=== PATIENT | female | born 1995 | race Caucasian/White ===

== ENCOUNTER 2016-08-20 16:34 | Emergency (ER) | payer OTHER ==
[~2016-08-20 16:34] MED LIST: ALBUTEROL17 GM INH; BACTRIM DS TABL1 TA1 PO; BENADRYL25 M3 PO; DAKIN'S MODIF1000 ML TOP; DESYREL50 MG PO; FAMOTIDINE PO; IBUPROFEN PO; NAPROXEN500 M1 PO; NEURONTIN300 MG PO; NO MEDICATIONS; PHENERGAN PO; PREDNISONE PO; REQUIP1 MG PO; VISTARIL PO
[2016-08-20 17:15] LABS: AMPHETAMINE POS (NEG); BARBITURATES NEG (NEG); BENZODIAZEPINES NEG (NEG); COCAINE NEG (NEG); MARIJUANA NEG (NEG); OPIATES NEG (NEG); TRICYCLIC ANTIDEPRESSANTS NEG (NEG); U METHADONE NEG (NEG)
[2016-10-27] MEDS ORDERED: ALBUTEROL17 GM (03:26)
== END 2016-08-20 17:22 | disposition home or self-care (01) ==
LOC: SED 16:34
PROVIDERS: Nurse Practitioner
DX: L02.413 Cutaneous abscess of right upper limb (principal); J45.909 Unspecified asthma, uncomplicated; F41.9 Anxiety disorder, unspecified; Z79.899 Other long term (current) drug therapy
CPT/HCPCS: 10060; 80307; 84703; 87070; 87205; 99283

== ENCOUNTER 2016-08-22 15:27 | Inpatient (IN) | payer OTHER ==
--- NOTE | ~2016-08-22 | CR63 ---
[facility] A Service of [facility] RADIOLOGY TEXT RESULTS PATIENT: RENETTA TYSON LOCATION: CEDOF : 95 UNIT #: [id number] AGE: [address]: Jovon Oquendo MD SEX: F ORDER DR: [id number] [place] [id number] [facility]. [place], [place] [address] [id number] I MR#: [id number] Acc #: [id number] NAME: RENETTA TYSON : 1995 SEX: F STUDY DATE/TIME: 08/22/2016 20:58 UNIT: CEDOF ROOM: 42856 STUDY DESCRIPTION: CR Chest 2 View Attending Physician: Jovon Oquendo M.D. Ordering Physician: Lizzeth Simeon M.D. Primary Care Physician: Francis Fletcher M.D. MEDICAL IMAGING REPORT This report is preliminary unless electronic signature is present EXAM PA and lateral chest. INDICATIONS Shortness of air, chest pain. Evaluate right arm abscess. Symptoms have been going on for 5 days. COMPARISON 04/09/2016. FINDINGS PA and lateral examination of the chest upright shows a good expansion of the parenchyma with a normal distribution of the pulmonary vascularity. There is no indication of congestion, effusion, infiltrate, tumor, or nodular density. The pleural reflections and diaphragmatic contours are normal. The cardiac silhouette and mediastinal anatomy is within normal limits. IMPRESSION Normal chest. Dictated by... Jorje Flores M.D. THIS IS AN ELECTRONICALLY VERIFIED REPORT Jorje Flores M.D. at 08/23/2016 4:33 PM FEL/pc TD: 08/23/2016 15:19 JOB #: [id number] [facility] A Service of [facility] RADIOLOGY TEXT RESULTS PATIENT: RENETTA TYSON LOCATION: CEDOF : 95 UNIT #: [id number] AGE: [address]: Jovon Oquendo MD SEX: F ORDER DR: MEDICAL IMAGING REPORT COPY
--- NOTE | ~2016-08-22 | DS ---
Unit #: [id number] #: [id number] Patient: RENETTA TYSON [id number] [address] [place], [place] [address] [id number] I MR#: [id number] NAME: RENETTA TYSON ROOM: 579 Age: 21 Sex: F Admission Date: 08/22/2016 : 1995 Discharge Date: 08/24/2016 Attending Physician: Jovon Oquendo M.D. Primary Care Physician: Francis Fletcher M.D. DISCHARGE SUMMARY PRIMARY DIAGNOSIS Antecubital abscess of the right upper extremity. SECONDARY DIAGNOSES 1. IV drug use including use of her IV line here in the hospital. 2. Sepsis secondary to her abscess. 3. Transaminitis. 4. Asthma, clinically stable. HOSPITAL COURSE The patient was placed in the hospital, underwent I and D for her antecubital abscess. She was given Lortab 10 mg q.4 hours p.r.n. for pain control, but nonetheless the patient appears to have used her PICC line and IV tubing for subcutaneous injection in her hospital room as she had a large IV needle line hole found in her IV tubing, which resulted in fluid loss from the IV tubing. Considering her ongoing IV drug use, the patient could not be continued to be safely treated in the hospital setting. Her temperature was stable and her white blood cell count had decreased significantly and all signs of sepsis had markedly improved and the patient on clinical exam was markedly better, so it was felt appropriate for discharge to home and close followup outpatient with the surgical team. We switched her over to doxycycline p.o. and I will continue to monitor her cultures after she leaves. The patient gave me her father's phone number to contact if for some reason the antibiotics need to be changed based on ultimate culture results. She was seen by social work nurse and provided contact information for drug abstinence programs, but at the current time she seems far from willing to avail herself of these programs. DISCHARGE DISPOSITION To home. DISCHARGE STATUS Stable. DISCHARGE ACTIVITY Ad delphine. DISCHARGE DIET Unrestricted. DISCHARGE FOLLOWUP Followup is with [facility] in 2 to 8 days for wound check. Unit #: [id number] #: [id number] Patient: RENETTA TYSON DISCHARGE MEDICATIONS Tylenol 650 mg p.o. q.6 hours p.r.n. for pain, Zyrtec 10 mg p.o. daily, naproxen 500 mg p.o. b.i.d., and doxycycline 100 mg p.o. b.i.d. Dictated by... Jovon Oquendo M.D. LIZ/moy TD: 08/27/2016 06:14 JOB #: [id number] DISCHARGE SUMMARY X Jovon Oquendo MD X DISCHARGE SUMMARY
--- NOTE | ~2016-08-22 | EKG ---
PATIENT: RENETTA TYSON UNIT #: [id number] Ventricular Rate: 105 BPM Atrial Rate: 105 BPM P-R Interval: 144 ms QRS Duration: 110 ms Q-T Interval: 354 ms QTC Calculation(Bezet): 467 ms P [place]: 71 degrees Calculated R [place]: 15 degrees Calculated T [place]: 53 degrees Diagnosis Line: Sinus tachycardia Diagnosis Line: Otherwise normal ECG Diagnosis Line: No previous ECGs available Diagnosis Line: Confirmed by NOEMI UP MD ([id number]) on Diagnosis Line: 08/26/2016 3:57:41 PM INTERPRETING MD: JEOVANNY RICK
--- NOTE | ~2016-08-22 | HP ---
Unit #: [id number] #: [id number] Patient: RENETTA TYSON [id number] [facility] [address] [facility]. [place], [place] [address] [id number] I MR#: [id number] NAME: RENETTA TYSON ROOM: 47351 Age: 21 Sex: F Admission Date: 08/22/2016 : 1995 Attending Physician: Anneliese Banerjee M.D. Primary Care Physician: Francis Fletcher M.D. HISTORY AND PHYSICAL CHIEF COMPLAINT Abscess. HISTORY OF PRESENT ILLNESS The patient is a 21-year-old female with past medical history of asthma and IV drug use as well as anxiety and depression who presented to the emergency department for evaluation of the above. Of note, the patient was seen at [facility] on 08/20/2016 for an abscess involving the right upper extremity on the dorsal aspect. She underwent incision and drainage. She was discharged home on Keflex and Bactrim which she has been taking as prescribed. This morning she woke with a new abscess involving the right antecubital fossa. She states that it is swollen, red and tender. She denies any fever. No cough or cold symptoms. No bowel or bladder problems. In the emergency department, temperature was 97.5, pulse 113. During the course of her evaluation, blood pressure dropped to 88/36. Laboratory notable for white blood cell count of 12.5; lactic acid 1.3. She is being admitted to [facility] for evaluation and further treatment. PAST MEDICAL HISTORY 1. Admission to [facility] 12/28 through 01/01/2016 for bilateral upper extremity abscesses. She underwent incision and drainage during that admission. I do not see a wound culture from that admission. She did have blood cultures that were no growth after five days. 2. Asthma not requiring intubation. She has not seen a informix developer. 3. Anxiety depression. 4. IV drug use. PAST SURGICAL HISTORY 1. Incision and drainage of abscess. 2. . 3. [place] teeth removal. ALLERGIES No known allergies. HOME MEDICATIONS Include: 1. Zyrtec 10 mg daily. 2. Naproxen 500 mg b.i.d. 3. Bactrim b.i.d. 4. Keflex 250 mg q.i.d. Unit #: [id number] #: [id number] Patient: RENETTA TYSON SOCIAL HISTORY The patient lives with her mom. She smokes a pack of cigarettes daily. She uses IV drugs, both heroin and methamphetamine. She states that she uses clean needles. She states that she recently relapsed and her last use was 3 days prior to admission. She also smokes marijuana. She is not currently working. FAMILY HISTORY Notable for her mother having COPD. Her father has diabetes. REVIEW OF SYSTEMS A complete review of systems is negative except as indicated in the HPI. PHYSICAL EXAMINATION VITAL SIGNS: Temperature 97.5, pulse 113, respirations 18, blood pressure 113/69. GENERAL: The patient is a female who is awake and alert. No acute distress. HEENT: Head is atraumatic. Mucous membranes are moist. NECK: Supple. Trachea is midline. LUNGS: Relatively clear to auscultation bilaterally with no increased work of breathing. HEART: Tachycardic in the one-teens. ABDOMEN: Soft, nontender. Bowel sounds present in all four quadrants. EXTREMITIES: The dorsal aspect of the right forearm demonstrates an incised wound consistent with previous incision and drainage. The right antecubital fossa demonstrates a several centimeter area of edema, warmth, tenderness to palpation. It is indurated. There is a 2+ radial pulse. Sensation is intact. PSYCHIATRIC: Patient is quite tearful. SKIN: Demonstrates the previously described abnormalities. DIAGNOSTIC STUDIES LABORATORY: Beta HCG from 08/20/2016 was negative. Urine toxicology screen from 08/20/2016 was positive for amphetamines. Wound culture from 08/20/2016 shows no organisms. Gram-stain shows no organisms. Complete blood count notable for white blood cell count of 12.5. Lactic acid 1.3. Comprehensive metabolic panel notable for a sodium of 132, AST 59, ALT 221, alkaline phosphatase 134. ASSESSMENT The patient is a 21-year-old female with: 1. Right upper extremity abscess. The patient received vancomycin. She was on Keflex and Bactrim as an outpatient. 2. Sepsis with lactic acid of 1.3. 3. Hyponatremia. 4. IV drug use. 5. Transaminitis. 6. Anxiety depression. 7. Tobacco abuse. 8. Asthma. PLAN 1. Admit to intermediate level. 2. Regular diet. 3. N.p.o. after midnight for possible surgical intervention. 4. Blood cultures x2. Unit #: [id number] #: [id number] Patient: RENETTA TYSNO 5. Vancomycin IV and Zosyn IV. 6. Consult [facility] regarding right upper extremity abscess. 7. Sepsis protocol with repeat lactic acid. 8. Normal saline at 150 mL per hour. 9. Monitor blood pressure closely. 10. Chest x-ray for further evaluation of hyponatremia. 11. Hepatitis panel. 12. HIV. 13. accounting office manager and social work consult regarding IV drug use. 14. Check EKG. 15. P.r.n. DuoNeb. 16. P.r.n. Tylenol. 17. P.r.n. Toradol. 18. Check urinalysis and urine toxicology screen as well as urine beta HCG. 19. P.r.n. Zofran. 20. Repeat labs in the morning. 21. SCDs for DVT prophylaxis. 22. Additional workup and consultants based on above. Dictated by Brigida Hudson/cailin TD: 08/22/2016 22:40 JOB #: [id number] HISTORY AND PHYSICAL X Anneliese Banerjee MD X HISTORY AND PHYSICAL
--- NOTE | ~2016-08-22 | OR ---
Unit #: [id number] #: [id number] Patient: RENETTA TYSON [id number] [address] [address] [id number] I MR#: [id number] NAME: RENETTA TYSON ROOM: 579 Date of Procedure: 08/24/2016 Admission Date: 08/22/2016 Surgeon: Erick Pompa M.D. : 1995 Attending Physician: Jovon Oqeundo M.D. Primary Care Physician: Francis Fletcher M.D. OPERATIVE REPORT PREOPERATIVE DIAGNOSIS Right antecubital abscess. POSTOPERATIVE DIAGNOSIS Right antecubital abscess. PROCEDURE PERFORMED Incision and drainage of right antecubital abscess. ANESTHESIA LMA. COMPLICATIONS None. ESTIMATED BLOOD LOSS Minimal. DESCRIPTION OF PROCEDURE After the patient was prepped and draped in usual fashion, right antecubital space was examined. There was a larger cellulitis with a 4 cm area of fluctuance. This was opened with a scalpel. Pus was freely expressed. The abscess cavity was irrigated and suctioned free. Pus was sent for culture. All of the abscess cavity tissue was viable. There was no significant necrosis. Hemostasis completed with electrocautery. The wound was packed with 1/2-inch iodoform gauze. Dressings applied. The patient was taken to the recovery room in good condition. Dictated by... Brigida Holley/moy TD: 08/25/2016 04:20 JOB #: [id number] Unit #: [id number] #: [id number] Patient: RENETTA TYSON OPERATIVE REPORT X Erick Pompa X PROCEDURE OPERATIVE NOTE
[2016-08-22] MEDS ORDERED: NAPROSYN500 MG PO (16:23)
[2016-08-22] MEDS ORDERED: ZYRTEC10 M1 PO (16:23)
[2016-08-22] MEDS ORDERED: BACTRIM DS TABL1 TA1 PO (16:23)
[2016-08-22] MEDS ORDERED: KEFLEX250 M1 PO (16:23)
[2016-08-22 16:40] LABS: BASOPHIL# 0.1 X10e3 (0-0.3); BASOPHIL% 0.5 % (0-2.5); EOSINOPHIL# 0.6 X10e3 (0-0.7); EOSINOPHIL% 4.4 % (0.0-7.0); HEMATOCRIT 42.8 % (35.0-45.0); HEMOGLOBIN 14.2 gm/dL (12.0-16.0); LYMPHOCYTE# 5.1 X10e3 (1.0-3.5); LYMPHOCYTE% 41.1 % (17.0-45.0); MEAN CORPUSCULAR HEMOGLOBIN 27.3 PG (28-34); MEAN CORPUSCULAR HGB CONC 33.2 g/dL (30-36); MEAN PLATELET VOLUME 8.3 FL (6.5-11.5); MONOCYTE# 0.9 X10e3 (0-1.0); MONOCYTE% 7.5 % (3.0-12.0); NEUTROPHIL# 5.8 X10e3 (1.5-7.1); NEUTROPHIL% 46.5 % (40-75); PLATELET COUNT 318 X10e3 (140-420); RED BLOOD COUNT 5.22 X10e (3.90-5.30); RED CELL DISTRIBUTION WIDTH 15.9 % (11.0-15.5); WHITE BLOOD COUNT 12.5 X10e3 (4.0-10.5)
[2016-08-22 16:41] LABS: DIFF IND NO
[2016-08-22 17:24] LABS: ALBUMIN SERUM 4.1 g/dL (3.5-5.0); ALKALINE PHOSPHATASE 134 U/L (32-92); ALT (SGPT) 221 U/L (10-40); AST (SGOT) 59 U/L (10-42); BILIRUBIN,TOTAL 1.2 mg/dL (0.2-2.0); BLOOD UREA NITROGEN 16 mg/dL (9-23); BUN/CREATININE RATIO 22.85; CARBON DIOXIDE 25 mmol/L (22-31); CHLORIDE 104 mmol/L (100-111); CREATININE SERUM 0.7 mg/dL (0.6-1.4); GLOM FILT RATE Estimated ABOVE60 mL/min (>60); GLUCOSE FASTING 95 mg/dL (70-110); POTASSIUM 4.8 mmol/L (3.5-5.1); PROTEIN TOTAL SERUM 8.3 g/dL (6.0-8.3); SODIUM 132 mmol/L (135-145)
[2016-08-22 17:31] LABS: CALCIUM SERUM 8.9 mg/dL (8.4-10.2)
[2016-08-22 22:04] LABS: URINE SOURCE CLEAN CATCH
[2016-08-22 22:11] LABS: URINE APPEARANCE CLOUDY; URINE BILIRUBIN NEG (NEG); URINE BLOOD NEG (NEG); URINE COLOR YELLOW; URINE GLUCOSE NEG (NEG); URINE KETONE NEG (NEG); URINE LEUKOCYTE ESTERASE NEG (NEG); URINE NITRATE NEG (NEG); URINE PROTEIN NEG (NEG); URINE SPECIFIC GRAVITY 1.028 (1.003-1.035)
[2016-08-22 22:31] LABS: AMPHETAMINE POS (NEG); BARBITURATES NEG (NEG); BENZODIAZEPINES NEG (NEG); COCAINE NEG (NEG); MARIJUANA NEG (NEG); OPIATES POS (NEG); TRICYCLIC ANTIDEPRESSANTS NEG (NEG); U METHADONE NEG (NEG)
[2016-08-23 11:28] LABS: BASOPHIL# 0.1 X10e3 (0-0.3); BASOPHIL% 0.9 % (0-2.5); EOSINOPHIL# 0.8 X10e3 (0-0.7); EOSINOPHIL% 8.5 % (0.0-7.0); HEMATOCRIT 36.8 % (35.0-45.0); LYMPHOCYTE# 4.3 X10e3 (1.0-3.5); LYMPHOCYTE% 46.3 % (17.0-45.0); MEAN CELL VOLUME 82.7 FL (83-96); MEAN CORPUSCULAR HEMOGLOBIN 27.3 PG (28-34); MEAN PLATELET VOLUME 8.1 FL (6.5-11.5); MONOCYTE# 0.8 X10e3 (0-1.0); MONOCYTE% 8.9 % (3.0-12.0); NEUTROPHIL# 3.2 X10e3 (1.5-7.1); NEUTROPHIL% 35.4 % (40-75); PLATELET COUNT 268 X10e3 (140-420); RED BLOOD COUNT 4.45 X10e (3.90-5.30); RED CELL DISTRIBUTION WIDTH 15.7 % (11.0-15.5); WHITE BLOOD COUNT 9.2 X10e3 (4.0-10.5)
[2016-08-23 11:29] LABS: DIFF IND NO; HEMOGLOBIN 12.2 gm/dL (12.0-16.0)
[2016-08-23 12:00] LABS: ALKALINE PHOSPHATASE 99 U/L (32-92); ALT (SGPT) 136 U/L (10-40); AST (SGOT) 34 U/L (10-42); BILIRUBIN,TOTAL 0.6 mg/dL (0.2-2.0); BLOOD UREA NITROGEN 7 mg/dL (9-23); CARBON DIOXIDE 22 mmol/L (22-31); CHLORIDE 113 mmol/L (100-111); CREATININE SERUM 0.5 mg/dL (0.6-1.4); GLOM FILT RATE Estimated ABOVE60 mL/min (>60); GLUCOSE FASTING 91 mg/dL (70-110); POTASSIUM 3.7 mmol/L (3.5-5.1); PROTEIN TOTAL SERUM 6.3 g/dL (6.0-8.3); SODIUM 137 mmol/L (135-145)
[2016-08-24 07:02] LABS: HEMATOCRIT 34.6 % (35.0-45.0); HEMOGLOBIN 11.2 gm/dL (12.0-16.0); MEAN CELL VOLUME 83.2 FL (83-96); MEAN CORPUSCULAR HGB CONC 32.5 g/dL (30-36); RED BLOOD COUNT 4.16 X10e (3.90-5.30); RED CELL DISTRIBUTION WIDTH 15.7 % (11.0-15.5); WHITE BLOOD COUNT 8.8 X10e3 (4.0-10.5)
[2016-08-24 07:50] LABS: ALBUMIN SERUM 2.7 g/dL (3.5-5.0); ALKALINE PHOSPHATASE 97 U/L (32-92); ALT (SGPT) 103 U/L (10-40); AST (SGOT) 29 U/L (10-42); BILIRUBIN,TOTAL 0.4 mg/dL (0.2-2.0); BLOOD UREA NITROGEN 10 mg/dL (9-23); CALCIUM SERUM 8.1 mg/dL (8.4-10.2); CARBON DIOXIDE 26 mmol/L (22-31); CHLORIDE 109 mmol/L (100-111); CREATININE SERUM 0.5 mg/dL (0.6-1.4); GLOM FILT RATE Estimated ABOVE60 mL/min (>60); GLUCOSE FASTING 83 mg/dL (70-110); POTASSIUM 3.9 mmol/L (3.5-5.1); PROTEIN TOTAL SERUM 5.6 g/dL (6.0-8.3); SODIUM 140 mmol/L (135-145)
[2016-08-24] MEDS ORDERED: ACETAMINOPHEN PO (15:38)
[2016-08-24] MEDS ORDERED: VIBRAMYCIN100 M1 PO (15:40)
[2016-08-27 21:09] LABS: HA AB IGM (HEPPAN) Nonreactive (Nonreactive); HB CORE AB IGM (HEPPAN) Nonreactive (Nonreactive); HB S AG (HEPPAN) Nonreactive (Nonreactive); HEP C AB (HEPPAN) Reactive (Nonreactive)
[2016-10-27] MEDS ORDERED: ALBUTEROL17 GM (03:26)
== END 2016-08-24 19:15 | disposition home health service (06) | DRG 854 ==
LOC: CED 15:27 → CEDOF 20:00 → C5C 08-23 19:32
PROVIDERS: Internal Medicine; Nurse Practitioner; Student in an Organized Health Care Education/Training Program; Surgery
PROC: 02HV33Z Insertion of Infusion Device into Superior Vena Cava, Percutaneous Approach (ICD-10-PCS; 2016-08-23)
PROC: 4A02X4A Measurement of Cardiac Electrical Activity, Guidance, External Approach (ICD-10-PCS; 2016-08-23)
PROC: 0J9D0ZZ Drainage of Right Upper Arm Subcutaneous Tissue and Fascia, Open Approach (ICD-10-PCS; principal; 2016-08-24 10:00)
DX: A41.9 Sepsis, unspecified organism (principal); L02.413 Cutaneous abscess of right upper limb; E87.1 Hypo-osmolality and hyponatremia; R74.0 Nonspecific elevation of levels of transaminase and lactic acid dehydrogenase [LDH]; F11.90 Opioid use, unspecified, uncomplicated; F15.90 Other stimulant use, unspecified, uncomplicated; F41.9 Anxiety disorder, unspecified; F32.9 Major depressive disorder, single episode, unspecified; F17.210 Nicotine dependence, cigarettes, uncomplicated; J45.909 Unspecified asthma, uncomplicated
CPT/HCPCS: 36415; 71020; 80053; 80074; 80307; 81003; 83605; 84703; 85025; 85027; 87040; 87070; 87075; 87086; 87205; 87522; 87806; 93005; 94640; 94760; 99285; J1100; J1885; J2250; J2405; J2543; J3010; J3370

== ENCOUNTER 2016-09-22 19:29 | Emergency (ER) | payer OTHER ==
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
[~2016-09-22 19:29] MED LIST changes: +ACETAMINOPHEN PO; +KEFLEX250 M1 PO; +NAPROSYN500 MG PO; +VIBRAMYCIN100 M1 PO; +ZYRTEC10 M1 PO
[2016-10-27] MEDS ORDERED: ALBUTEROL17 GM (03:26)
== END 2016-09-22 21:45 | disposition left against medical advice (07) ==
LOC: CFTX 19:29
DX: S09.90XA Unspecified injury of head, initial encounter (principal); S01.01XA Laceration without foreign body of scalp, initial encounter; S13.4XXA Sprain of ligaments of cervical spine, initial encounter; J45.909 Unspecified asthma, uncomplicated; F17.210 Nicotine dependence, cigarettes, uncomplicated; W22.8XXA Striking against or struck by other objects, initial encounter; Y92.410 Unspecified street and highway as the place of occurrence of the external cause
CPT/HCPCS: 70450; 71101; 72040; 84703; 99284

== ENCOUNTER 2016-10-27 03:32 | Emergency (ER) | payer OTHER ==
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
[~2016-10-27 03:32] MED LIST changes: +ALBUTEROL17 GM
== END 2016-10-27 04:56 | disposition home or self-care (01) ==
LOC: SED 03:32
DX: S00.83XA Contusion of other part of head, initial encounter (principal); J40 Bronchitis, not specified as acute or chronic; J45.909 Unspecified asthma, uncomplicated; F17.200 Nicotine dependence, unspecified, uncomplicated; Y04.0XXA Assault by unarmed brawl or fight, initial encounter; Y07.9 Unspecified perpetrator of maltreatment and neglect
CPT/HCPCS: 70450; 70486; 71020; 94640; 99284

== ENCOUNTER 2016-11-07 23:21 | Emergency (ER) | payer OTHER | END 2016-11-08 02:25 | disposition left against medical advice (07) | LOC: CED 23:21 | DX: Z53.21 Procedure and treatment not carried out due to patient leaving prior to being seen by health care provider (principal) ==

== ENCOUNTER 2016-11-10 23:17 | Emergency (ER) | payer OTHER | END 2016-11-11 02:10 | disposition home or self-care (01) | LOC: CED 23:17 | DX: S41.132A Puncture wound without foreign body of left upper arm, initial encounter (principal); W26.0XXA Contact with knife, initial encounter; Y92.009 Unspecified place in unspecified non-institutional (private) residence as the place of occurrence of the external cause; B19.20 Unspecified viral hepatitis C without hepatic coma; J45.909 Unspecified asthma, uncomplicated; Z79.899 Other long term (current) drug therapy; Z23 Encounter for immunization | CPT/HCPCS: 90471; 90715; 99283 ==

== ENCOUNTER 2016-11-16 03:07 | Emergency (ER) | payer OTHER ==
--- NOTE | ~2016-11-16 | CR63 ---
[facility] A Service of [facility] & [facility] RADIOLOGY TEXT RESULTS PATIENT: RENETTA TYSON LOCATION: [facility] : 95 UNIT #: [id number] AGE: [address]: ANTONIO LAZO APRN SEX: F ORDER DR: [id number] [facility] [address] [place], [place] [address] [id number] E MR#: [id number] Acc #: [id number] NAME: RENETTA TYSON : 1995 SEX: F STUDY DATE/TIME: 11/16/2016 6:17 UNIT: [facility] ROOM: STUDY DESCRIPTION: CR Chest 2 View Attending Physician: Antonio Lazo Aprn Ordering Physician: Antonio Lazo Aprn Primary Care Physician: Francis Fletcher M.D. MEDICAL IMAGING REPORT This report is preliminary unless electronic signature is present EXAM Portable AP view of the chest COMPARISON 02/08/2017, 08/22/2016, and 04/09/2016. INDICATIONS 21-year-old female with cough, chest congestion and dyspnea for 3 days. FINDINGS Lungs are clear. Cardiomediastinal silhouette is normal. No evidence of acute airspace disease. IMPRESSION Normal exam. Dictated by... Jun Molina M.D. THIS IS AN ELECTRONICALLY VERIFIED REPORT Jun Molina M.D. at 11/23/2016 7:33 PM MATT/josé TD: 11/16/2016 08:54 JOB #: [id number] MEDICAL IMAGING REPORT Page 1 of 1 COPY
[2016-11-16 03:56] LABS: INFLUENZA A NEG (NEG); INFLUENZA B NEG (NEG)
[2016-11-16 06:38] LABS: URINE APPEARANCE CLOUDY; URINE BILIRUBIN NEG (NEG); URINE BLOOD NEG (NEG); URINE COLOR YELLOW; URINE GLUCOSE NEG (NEG); URINE KETONE TRACE (NEG); URINE LEUKOCYTE ESTERASE NEG (NEG); URINE NITRATE NEG (NEG); URINE PH 5.5 (5-8); URINE PROTEIN NEG (NEG); URINE SPECIFIC GRAVITY 1.027 (1.003-1.035)
[2016-11-16 06:40] LABS: CULTURE INDICATED? NO
== END 2016-11-16 07:20 | disposition home or self-care (01) ==
LOC: CED 03:07
PROVIDERS: Nurse Practitioner Family
DX: J06.9 Acute upper respiratory infection, unspecified (principal); J45.909 Unspecified asthma, uncomplicated; B19.20 Unspecified viral hepatitis C without hepatic coma; F41.9 Anxiety disorder, unspecified; F32.9 Major depressive disorder, single episode, unspecified; F17.210 Nicotine dependence, cigarettes, uncomplicated
CPT/HCPCS: 71020; 81003; 84703; 87651; 87804; 99283

== ENCOUNTER 2016-11-19 02:49 | Emergency (ER) | payer OTHER ==
--- NOTE | ~2016-11-19 | CR63 ---
[facility] A Service of [facility] & [facility] RADIOLOGY TEXT RESULTS PATIENT: RENETTA TYSON LOCATION: SED : 95 UNIT #: [id number] AGE: [address]: Jameson Bah MD SEX: F ORDER DR: [id number] [place] [id number] E MR#: [id number] Acc #: [id number] NAME: RENETTA TYSON : 1995 SEX: F STUDY DATE/TIME: 11/19/2016 3:34 UNIT: SED ROOM: STUDY DESCRIPTION: CR Chest 2 View Attending Physician: Jameson Bah M.D. Ordering Physician: Jameson Bah M.D. Primary Care Physician: Francis Fletcher M.D. MEDICAL IMAGING REPORT This report is preliminary unless electronic signature is present. EXAM Two-view chest INDICATION Asthma attack today. Shortness of air. PROCEDURE Frontal and lateral views of the chest. COMPARISON 11/16/2016. FINDINGS Heart size is normal. Lungs are clear. No pleural fluid or pneumothorax. IMPRESSION No active process. No dense consolidation. Dictated by... Garcia Barajas M.D. THIS IS AN ELECTRONICALLY VERIFIED REPORT Garcia Barajas M.D. at 11/19/2016 10:10 PM TONYA/henry TD: 11/19/2016 09:56 JOB #: [id number] MEDICAL IMAGING REPORT Page 1 of 1
== END 2016-11-19 04:23 | disposition home or self-care (01) ==
LOC: SED 02:49
DX: J45.901 Unspecified asthma with (acute) exacerbation (principal); J20.9 Acute bronchitis, unspecified; F17.200 Nicotine dependence, unspecified, uncomplicated
CPT/HCPCS: 71020; 94640; 99284

== ENCOUNTER 2017-03-03 00:04 | Inpatient (IN) | payer OTHER ==
--- NOTE | ~2017-03-03 | CR72 ---
[facility] A Service of [facility] & [facility] RADIOLOGY TEXT RESULTS PATIENT: RENETTA TYSON LOCATION: [facility] 340-01 : [birth year] UNIT #: [id number] AGE: [address]: Jovon Oquendo MD SEX: F ORDER DR: [id number] [facility] [address] [facility] [place], [place] [address] [id number] I MR#: [id number] Acc #: [id number] NAME: RENETTA TYSON : 1995 SEX: F STUDY DATE/TIME: 03/03/2017 03:35 UNIT: CEDOF ROOM: 38217 STUDY DESCRIPTION: CR Chest Single View Portable Attending Physician: Jovon Oquendo M.D. Ordering Physician: Jameson Bha M.D. Primary Care Physician: Francis Fletcher M.D. MEDICAL IMAGING REPORT This report is preliminary unless electronic signature is present EXAM Portable chest 03/03/2017 at 0335 INDICATION Bilateral lung pain for 1 week, worse over the last 3 days. History of IV drug abuse. FINDINGS AP portable chest is compared with 11/19/2016. Cardiac and mediastinal contours are normal. Mild left perihilar infiltrate may be present. The lungs are otherwise clear. No pneumothorax. IMPRESSION Potential mild left perihilar infiltrate. Otherwise, negative chest. Dictated by... Chapo Miranda Jr., M.D. THIS IS AN ELECTRONICALLY VERIFIED REPORT Chapo Miranda Jr., M.D. at 03/03/2017 9:20 PM SHAYLA/josé TD: 03/03/2017 15:00 JOB #: [id number] MEDICAL IMAGING REPORT Page 1 of 1 COPY
--- NOTE | ~2017-03-03 | DS ---
Unit #: [id number] #: [id number] Patient: RENETTA TYSON [id number] [address] [address] [id number] I MR#: [id number] NAME: RENETTA TYSON ROOM: 340 Age: 21 Sex: F Admission Date: 03/03/2017 : 1995 Discharge Date: 03/06/2017 Attending Physician: Jovon Oquendo M.D. Primary Care Physician: Francis Fletcher M.D. DISCHARGE SUMMARY PRIMARY DIAGNOSES 1. Multifocal pneumonia, possible Gram-negative ann marie. 2. Sepsis. 3. History of abusing her inpatient intravenous access for intravenous heroin use. SECONDARY DIAGNOSES 1. Intravenous heroin abuse. 2. Asthma. 3. Tobacco abuse. HOSPITAL COURSE Patient was admitted with sepsis and multifocal pneumonia, was treated with Zosyn and vancomycin and showed good clinical improvement. HIV test was negative. Cultures were negative at the time of discharge and consultation was obtained with Dr. Loredo who recommended discharge on Omnicef and doxycycline with which I agree. Patient was given symptomatic medications for heroin withdrawal while here in the hospital. She does have a history of asthma and patient was prescribed Singular, Breo Ellipta and a Ventolin inhaler by Dr. Loredo. Patient was given outpatient drug abstinence resources by the psychologist social prior to discharge. DISCHARGE DISPOSITION To home. DISCHARGE STATUS Stable. DISCHARGE ACTIVITY Ad delphine. DISCHARGE DIET Unrestricted. DISCHARGE FOLLOWUP With PCP of her choice in 1-4 weeks. Follow up with Dr. Loredo with pulmonology in 3-8 weeks for her asthma and to follow up on her multifocal pneumonia. DISCHARGE MEDICATIONS 1. Tessalon Perles 200 mg p.o. t.i.d. for 1 week and then stop. 2. Omnicef 300 mg p.o. b.i.d. for 8 days and then stop. 3. Doxycycline 100 mg p.o. b.i.d. for 8 days and then stop. 4. Breo Ellipta 200 mcg, 1 puff daily. Unit #: [id number] #: [id number] Patient: RENETTA TYSON 5. Ventolin 90 mcg metered dose inhaler 2 puffs q.i.d. and as needed. 6. Singulair 10 mg p.o. once daily. I also informed the patient that if symptoms dictate, she could also take an quzs-wuw-gxqsmjw daily antihistamine or an gmyo-dov-ebsxpza cough medication in addition to the above prescribed meds. Dictated by... Jovon Oquendo M.D. LIZ/danyell TD: 03/10/2017 07:51 JOB #: [id number] DISCHARGE SUMMARY Page 1 of 1 X Jovon Oquendo MD X DISCHARGE SUMMARY
--- NOTE | ~2017-03-03 | HP ---
Unit #: [id number] #: [id number] Patient: WANDA DURHAM [id number] [address] [place], [place] [address] [id number] I MR#: [id number] NAME: WANDA DURHAM ROOM: 340 Age: 21 Sex: F Admission Date: 03/03/2017 : 1995 Attending Physician: Jovon Oquendo M.D. Primary Care Physician: Francis Fletcher M.D. HISTORY AND PHYSICAL CHIEF COMPLAINT Bilateral chest pain, worse with breathing. HISTORY OF PRESENT ILLNESS Ms. Wanda Durham is a 21-year-old white female, active IV heroin user, who presents complaining of productive cough and bilateral chest pain for which she feels she likely has pneumonia. She also complains of swelling in her right forearm with some numbness and tingling of her fingers on that side for which she is concerned that she might have an abscess. She has general malaise. She has fatigue. She has not developed any diarrhea. She does not have true nausea at this time, but she has vomited secondary to her coughing. She denies any abdominal pain, any other skin rashes or skin lesions. She denies any other numbness, tingling, or focal weaknesses. PAST MEDICAL HISTORY 1. Hepatitis C. 2. Asthma. 3. Anxiety. 4. Depression. PAST SURGICAL HISTORY 1. . 2. Incision and drainage of abscess. 3. [place] teeth removal. ALLERGIES No known drug allergies. HOME MEDICATIONS None at this time, per patient. SOCIAL HISTORY She smokes a pack of cigarettes a day. She denies any alcohol. She uses IV heroin. She occasionally uses amphetamine, although not in the last few days per her report. Of note, her urine drug screen is still positive for amphetamine as have been all of her urine drug screens at our hospital. She denies any other drugs of abuse. She has had a history of smoking marijuana but reports none recently. FAMILY HISTORY Mother with COPD. Father with diabetes. REVIEW OF SYSTEMS Unit #: [id number] #: [id number] Patient: WANDA DURHAM A full 10-point review of systems was done and is negative with the exceptions noted above in the HPI. PHYSICAL EXAMINATION VITAL SIGNS: Temperature is 99.1, pulse is currently 65 but was 126 at presentation, respiratory rate is currently 16 but was 28 earlier in her presentation, blood pressure is 99/76. GENERAL: Patient is alert and oriented. She appears acutely ill but she is in no acute pulmonary distress and is in otherwise no extremis. CARDIOVASCULAR: Regular rate and rhythm. No murmurs. LUNGS: Inspiratory rhonchi in the upper lobes bilaterally. Air exchange is 4+/4. No wheezing. No rales. ABDOMEN: Soft, nontender, nondistended. No mass or hepatosplenomegaly. EXTREMITIES: No clubbing or cyanosis. She has some mild edema in her left forearm and hand. She is mildly tender to palpation. I cannot really appreciate any erythema. There is no focal fluctuant masses to suggest abscess at this time. HEAD: Normocephalic and atraumatic. EYES: Sclerae are white. Conjunctivae are normally infused. NOSE: External nares are normal. There is no bleeding or drainage. MOUTH: Mucous membranes are moist. There is no oropharyngeal lesions. NECK: Supple. No cervical lymphadenopathy. Trachea is midline. NEUROLOGIC: Patient has 5/5 strength in all four extremities. No focal neurologic deficits. DIAGNOSTIC STUDIES LABORATORY: Beat hCG is negative. Urine drug screen is positive for amphetamines and opiates. Urinalysis is negative. INR and PTT are both normal. Lactic acid is normal at 1.2. White blood cell count is 11.9, hemoglobin 12.8, platelets 323,000. Potassium is 3.2. The remainder of complete metabolic profile is normal. IMAGING: CT angiogram of the chest shows ground-glass opacity suggestive of pneumonia in the bilateral upper lobes and in the right middle lobe. ASSESSMENT AND PLAN 1. Multifocal pneumonia with sepsis, possibly a gram-negative ann marie causing her pneumonia and possible Staphylococcus aureus causing her pneumonia. Will place her on vancomycin and cefepime. Will follow blood cultures and get a sputum Gram stain and culture and follow clinically. Repeat a CBC tomorrow. 2. Ongoing IV heroin abuse: Will also check an echocardiogram to rule out concurrent endocarditis, especially of the tricuspid valve. 3. Asthma: Clinically stable. Will provide albuterol p.r.n. at this time. 4. Sepsis present on admission: Based on elevated respiratory rate, elevated pulse, and elevated white blood cell count will start the sepsis protocol. 5. Hepatitis C: The patient can follow up outpatient for this. 6. Deep venous thrombosis prophylaxis: Will start patient on Lovenox. 7. Opiate dependence: Will start patient on the adult opiate withdrawal protocol with clonidine and will place her on some scheduled MS Contin while she is here in the hospital. Dictated by Unit #: [id number] #: [id number] Patient: MARBELLABrigida Calderón/shirley TD: 03/03/2017 17:01 JOB #: [id number] HISTORY AND PHYSICAL Page 1 of 1 X Jovon Oquendo MD X HISTORY AND PHYSICAL
--- NOTE | ~2017-03-03 | CT16 ---
[facility] A Service of [facility] RADIOLOGY TEXT RESULTS PATIENT: RENETTA TYSON LOCATION: [facility] 340-01 : [birth year] UNIT #: [id number] AGE: [address]: Jovon Oquendo MD SEX: F ORDER DR: [id number] [facility]. [place], [place] [address] [id number] I MR#: [id number] Acc #: [id number] NAME: RENETTA TYSON : 1995 SEX: F STUDY DATE/TIME: 03/03/2017 6:41 [facility] [id number] STUDY DESCRIPTION: CT Angio Chest for PE Attending Physician: Jovon Oquendo M.D. Ordering Physician: Jameson Bah M.D. Primary Care Physician: Francis Fletcher M.D. MEDICAL IMAGING REPORT This report is preliminary unless electronic signature is present EXAM Chest CT PE protocol with contrast, 03/03/2017 INDICATION 21-year-old female with lung pain bilaterally for a week worsening shortness of air the last 3 days. Soft tissue swelling of the upper extremity. Drug use, hepatitis C and asthma. TECHNIQUE Contrast enhanced CT scan of the chest PE protocol was performed with 3-D reformats. This CT exam was performed with one or more of the following radiation dose reduction techniques: automatic exposure control, adjustment of mA and/or kV according to patient size, and iterative reconstruction. COMPARISON No comparisons. FINDINGS CT CHEST: There is motion degradation. IV bolus timing adequate but suboptimal. A significant portion of the bolus is in the systemic arterial system. Aorta demonstrates no aneurysm or dissection. There is no evidence of acute pulmonary embolus in the central pulmonary arterial tree. Included thyroid unremarkable. No pericardial effusion. Reactive-appearing mediastinal and hilar nodes. Probable reactive axillary nodes measuring up to 7 mm short axis. These should be correlated clinically as they appear to be slightly increased in number bilaterally. Included upper abdomen demonstrates no acute finding. Lungs demonstrate no pleural effusion. Sequela of mild air trapping disease. There are [facility] A Service of [facility] RADIOLOGY TEXT RESULTS PATIENT: RENETTA TYSON LOCATION: [facility] 340-01 : [birth year] UNIT #: [id number] AGE: [address]: Jovon Oquendo MD SEX: F ORDER DR: patchy ground-glass opacities in the upper lobes bilaterally, right greater than left, and there is more confluent consolidation in the middle lobe on the right. Imaging features are suspicious for multifocal pneumonia. Followup to clearing recommended after appropriate therapy. No pneumothorax. No suspicious lung nodule. Osseous structures demonstrate no suspicious bone lesion. IMPRESSION 1. No aortic aneurysm or dissection. 2. No PE. 3. Ground-glass opacities in the upper lobes, right greater than left, and more confluent consolidation in the middle lobe. Imaging features are most characteristic of multifocal pneumonia. No associated effusion or suspicious pulmonary nodule. 4. Included upper abdomen demonstrates no acute finding. Dictated by... Jose Manuel Calvo M.D. THIS IS AN ELECTRONICALLY VERIFIED REPORT Jose Manuel Calvo M.D. at 03/04/2017 7:20 AM Valarie TD: 03/03/2017 15:39 JOB #: [id number] MEDICAL IMAGING REPORT Page 1 of 1 COPY
--- NOTE | ~2017-03-03 | CO ---
Unit #: [id number] #: [id number] Patient: RENETTA TYSON [id number] [facility]. [place], [place] [address] [id number] I MR#: [id number] NAME: RENETTA TYSON ROOM: 340 Age: 21 Sex: F Admission Date: 03/03/2017 : 1995 Attending Physician: Jovon Oquendo M.D. Primary Care Physician: Francis Fletcher M.D. CONSULTATION REPORT HISTORY OF PRESENT ILLNESS A 21-year-old lady with a history of IV drug abuse and amphetamine use. The patient has a history of cough and recurrent pneumonia since 18 years old. The patient states that she was having progressive cough. She has continued to have sinus issues. The patient now presents with approximately a week course of flank pain, positive nausea, positive vomiting, positive loose stools, positive cough productive of whitish to green sputum; however, no known sick contacts. The patient is unsure why she is developing this pneumonia. She is having some swelling in her right forearm, numbness and tingling of fingers which concerned her that she might have an abscess; however, further workup did not show anything. She is having some cough and emesis. The patient denies any other symptoms. We have been asked to see for CAT scan showing diffuse patchy infiltrates bilaterally. PAST MEDICAL HISTORY Significant for hepatitis C, history of asthma, history of anxiety, history of depression. PAST SURGICAL HISTORY Significant for , incision and drainage of abscess, history of wisdom teeth removal. ALLERGIES The patient has no known drug allergies. HOME MEDICATIONS None at this time. SOCIAL HISTORY The patient smokes a pack of cigarettes a day. Denies alcohol. Uses IV heroin, occasional amphetamine use. The patient has a history of smoking marijuana, none recently. FAMILY HISTORY Mother has a history of COPD. Father has a history of diabetes. REVIEW OF SYSTEMS A 10-point review of systems is negative except as per the history of present illness. PHYSICAL EXAMINATION VITAL SIGNS: T-current 97.5, pulse 97, respiratory rate 18, blood pressure 128/56, sats 98% on 2 L nasal cannula. Unit #: [id number] #: [id number] Patient: RENETTA TYSON HEENT: Shows pupils equal, round, and reactive to light. Extraocular movements are intact. CHEST: Clear to auscultation bilaterally. CARDIOVASCULAR: Regular rate. No gallop. ABDOMEN: Soft, nontender, and nondistended. EXTREMITIES: Shows no evidence of edema. ASSESSMENT AND PLAN 1. Multifocal pneumonia. The patient does not appear to have any sort of abscesses to suggest hematogenous source of spread such as from an endocarditis; however, due to the patient's history of IV drug use, I would like to continue Vancomycin and cefepime for resistant organisms. We will try to get sputum coverage. We will try to get a 3% saline neb to try to help with expectoration. We will try to do some Tessalon Perles to help with her cough and trazodone to help with anxiety. 2. Recurrent pneumonias. It is unclear whether this patient has any inborn immunodeficiency; however, due to the patient's social history, I believe this would be best done as an outpatient. The patient should continue to have her scheduled inhalers and on discharge, we would like to make sure that she will have her asthma medications. Thank you very much. Please page me at [phone] if you have any questions. Dictated by... Fatuma Loredo M.D. JASPER/moy TD: 03/05/2017 18:50 JOB #: [id number] CONSULTATION REPORT Page 1 of 1 X Nando Loredo MD X CONSULTATION REPORT
--- NOTE | ~2017-03-03 | EKG ---
PATIENT: RENETTA TYSON UNIT #: [id number] Ventricular Rate: 111 BPM Atrial Rate: 111 BPM P-R Interval: 116 ms QRS Duration: 102 ms Q-T Interval: 328 ms QTC Calculation(Bezet): 446 ms P [place]: 21 degrees Calculated R [place]: 27 degrees Calculated T [place]: 44 degrees Diagnosis Line: Sinus tachycardia Diagnosis Line: Otherwise normal ECG Diagnosis Line: When compared with ECG of 22-AUG-2016 20:41, Diagnosis Line: No significant change was found Diagnosis Line: Confirmed by NOEMI UP MD ([id number]) on Diagnosis Line: 03/03/2017 2:11:08 PM INTERPRETING MD: JEOVANNY RICK
[2017-03-03 04:04] LABS: BASOPHIL# 0.1 X10e3 (0-0.3); BASOPHIL% 0.6 % (0-2.5); EOSINOPHIL# 1.2 X10e3 (0-0.7); EOSINOPHIL% 9.7 % (0.0-7.0); HEMATOCRIT 39.2 % (35.0-45.0); HEMOGLOBIN 12.8 gm/dL (12.0-16.0); LYMPHOCYTE# 4.6 X10e3 (1.0-3.5); LYMPHOCYTE% 38.9 % (17.0-45.0); MEAN CELL VOLUME 83.7 FL (83-96); MEAN CORPUSCULAR HEMOGLOBIN 27.4 PG (28-34); MEAN CORPUSCULAR HGB CONC 32.7 g/dL (30-36); MEAN PLATELET VOLUME 7.1 FL (6.5-11.5); MONOCYTE# 1.1 X10e3 (0-1.0); NEUTROPHIL% 41.8 % (40-75); PLATELET COUNT 323 X10e3 (140-420); RED BLOOD COUNT 4.69 X10e (3.90-5.30); WHITE BLOOD COUNT 11.9 X10e3 (4.0-10.5)
[2017-03-03 04:05] LABS: DIFF IND NO
[2017-03-03 04:32] LABS: ALBUMIN SERUM 3.6 g/dL (3.5-5.0); BILIRUBIN, DIRECT 0.1 mg/dL (0.0-0.2); BILIRUBIN,INDIRECT 0.5 mg/dL (0.0-0.9); BILIRUBIN,TOTAL 0.6 mg/dL (0.2-2.0); BUN/CREATININE RATIO 16.66; CALCIUM SERUM 8.7 mg/dL (8.4-10.2); CREATININE SERUM 0.6 mg/dL (0.6-1.4); GLOM FILT RATE Estimated 130.3 mL/min (>60); POTASSIUM 3.2 mmol/L (3.5-5.1); PROTEIN TOTAL SERUM 6.7 g/dL (6.0-8.3)
[2017-03-03 05:34] LABS: INR 1.1; PARTIAL THROMBOPLASTIN TIME 30.4 SECONDS (23.5-31.3); PROTHROMBIN TIME (PATIENT) 11.4 SECONDS (10.0-11.7)
[2017-03-03 05:59] LABS: URINE SOURCE CLEAN CATCH
[2017-03-03 06:15] LABS: URINE APPEARANCE CLEAR; URINE BILIRUBIN NEG (NEG); URINE BLOOD NEG (NEG); URINE COLOR YELLOW; URINE GLUCOSE NEG (NEG); URINE KETONE NEG (NEG); URINE LEUKOCYTE ESTERASE NEG (NEG); URINE NITRATE NEG (NEG); URINE PH 6.5 (5-8); URINE PROTEIN NEG (NEG); URINE SPECIFIC GRAVITY 1.008 (1.003-1.035); URINE UROBILINOGEN 0.2 MG/DL (NEG)
[2017-03-03 06:22] LABS: CULTURE INDICATED? NO
[2017-03-03 06:26] LABS: AMPHETAMINE POS (NEG); BARBITURATES NEG (NEG); BENZODIAZEPINES NEG (NEG); COCAINE NEG (NEG); MARIJUANA NEG (NEG); OPIATES POS (NEG); TRICYCLIC ANTIDEPRESSANTS NEG (NEG); U METHADONE NEG (NEG)
[2017-03-03] MEDS ORDERED: ALBUTEROL 0.5ML NEB (09:42)
[2017-03-03] MEDS ORDERED: ALBUTEROL17 GM INH (09:42)
[2017-03-03] MEDS ORDERED: PATIENT'S PHARMACY (09:42)
[2017-03-04 07:36] LABS: HEMATOCRIT 37.2 % (35.0-45.0); HEMOGLOBIN 12.3 gm/dL (12.0-16.0); MEAN CELL VOLUME 83.8 FL (83-96); MEAN CORPUSCULAR HEMOGLOBIN 27.7 PG (28-34); MEAN CORPUSCULAR HGB CONC 33.1 g/dL (30-36); MEAN PLATELET VOLUME 7.4 FL (6.5-11.5); RED BLOOD COUNT 4.44 X10e (3.90-5.30); RED CELL DISTRIBUTION WIDTH 17.2 % (11.0-15.5); WHITE BLOOD COUNT 9.7 X10e3 (4.0-10.5)
[2017-03-04 08:00] LABS: BUN/CREATININE RATIO 12.85; CALCIUM SERUM 8.3 mg/dL (8.4-10.2); CREATININE SERUM 0.7 mg/dL (0.6-1.4); GLOM FILT RATE Estimated 123.9 mL/min (>60); POTASSIUM 4.1 mmol/L (3.5-5.1)
[2017-03-05 09:37] LABS: BUN/CREATININE RATIO 17.14; CALCIUM SERUM 8.3 mg/dL (8.4-10.2); CREATININE SERUM 0.7 mg/dL (0.6-1.4); GLOM FILT RATE Estimated 123.9 mL/min (>60); POTASSIUM 4.3 mmol/L (3.5-5.1)
[2017-03-06 06:10] LABS: HEMATOCRIT 44.4 % (35.0-45.0); MEAN CELL VOLUME 83.6 FL (83-96); MEAN CORPUSCULAR HEMOGLOBIN 27.9 PG (28-34); MEAN CORPUSCULAR HGB CONC 33.4 g/dL (30-36); MEAN PLATELET VOLUME 7.5 FL (6.5-11.5); RED BLOOD COUNT 5.31 X10e (3.90-5.30); WHITE BLOOD COUNT 10.7 X10e3 (4.0-10.5)
[2017-03-06 06:11] LABS: HEMOGLOBIN 14.8 gm/dL (12.0-16.0)
[2017-03-06] MEDS ORDERED: TESSALON PERLE100 M1 PO (13:04)
[2017-03-06] MEDS ORDERED: BREO ELLIPTA 21 EACH INH (13:05)
[2017-03-06] MEDS ORDERED: SINGULAIR PO (13:06)
[2017-03-06] MEDS ORDERED: PROAIR RESPICL90 MCG INH (13:09)
[2017-03-06] MEDS ORDERED: OMNICEF300 MG PO (13:09)
[2017-03-06] MEDS ORDERED: DOXYCYCLINE PO (13:10)
== END 2017-03-06 15:12 | disposition home or self-care (01) | DRG 871 ==
LOC: CED 00:04 → CEDOF 08:30 → C3A PCU 08:34 → CED 08:34 → CEDOF 08:34 → C3A PCU 16:17 → CEDOF 16:17 → C3A PCU 16:17
PROVIDERS: Emergency Medicine; Internal Medicine
PROC: B246YZZ Ultrasonography of Right and Left Heart using Other Contrast (ICD-10-PCS; principal; 2017-03-03)
DX: A41.9 Sepsis, unspecified organism (principal); J15.6 Pneumonia due to other Gram-negative bacteria; F11.20 Opioid dependence, uncomplicated; F17.210 Nicotine dependence, cigarettes, uncomplicated; J45.909 Unspecified asthma, uncomplicated; B19.20 Unspecified viral hepatitis C without hepatic coma; F41.9 Anxiety disorder, unspecified; F32.9 Major depressive disorder, single episode, unspecified; Z83.3 Family history of diabetes mellitus
CPT/HCPCS: 36415; 71010; 71275; 80048; 80076; 80307; 81003; 83605; 83615; 83735; 84703; 85025; 85027; 85610; 85730; 87040; 87070; 87806; 93005; 93306; 94640; 94644; 94664; 94760; 96361; 96365; 96366; 96368; 96375; 99285; J0692; J1650; J2405; J2543; J2930; J3370; Q9967